=== PATIENT | male | born 1945 | race Caucasian/White ===

== ENCOUNTER 2016-09-30 15:22 | Emergency (ER) | payer MEDICARE, OTHER ==
[~2016-09-30] VITALS: Ht 179.1 cm; Wt 83.6 kg
[2016-09-30 15:24] VITALS: BP 118/82; PULSE 100; RESP 18; O2SAT 94
[2016-09-30 16:03] LABS: BASOPHILS % (AUTO) 0.6 % (0-3); EOSINOPHILS % (AUTO) 1.7 % (0-5); MONOCYTES % (AUTO) 8.6 % (4-12); Mean Corpuscular Hemoglobin 32.3 pg (27.0-35.0); Mean Corpuscular Volume 97.8 fL (81-100); NEUTROPHILS % (AUTO) 77.4 % (40-74); Platelet Count 188 bil/L (150-400)
[2016-09-30 16:27] LABS: TROPONIN T < 0.010 ug/L (0.0-0.011)
--- NOTE | 2016-09-30 16:54 | DRSVH ---
PROCEDURE: X-RAY CHEST, TWO VIEWS ([id number]) INDICATIONS: shortness of breath TECHNIQUE: 2 views of the chest were acquired. COMPARISON: [facility], CR, CHEST 2VW, 08/29/2013, 13:53. FINDINGS: Surgical changes and devices: Sternal wires consistent with previous bypass procedure. Lungs and pleura: No pleural effusions or pneumothorax. Lungs are clear. Mediastinum: Mediastinal contours are normal. Heart size is normal. Bones and chest wall: No suspicious bony abnormalities. Soft tissues appear unremarkable. IMPRESSION: No acute pulmonary process. Dictated by: Berenice Salazar M.D. on 09/30/2016 at 16:52 Approved by: Berenice Salazar M.D. on 09/30/2016 at 16:52
--- NOTE | 2016-09-30 17:05 | ED.REPORT ---
HPI-General Illness Date of Service Sep 30, 2016 ED Provider: Dany García MD Pt is a 71 y/o male w/ a hx of COPD, coronary artery disease s/p CABG, siderosis , and recent shingles who reports to the ED complaining increased shortness of breath and cough for the past few days. Pt was at speech therapy earlier today when he was sent to Urgent Care because she was concerned about his breathing. He was then sent to the ED for further evaluation. He has been using Oxygen that he bought at a local [email or web address], as his Spiriva and Albuterol have not been enough to control his breathing. Patient has not recently been on a course of Prednisone. Pt was diagnosed with shingles on August 30 and following treatment, symptoms improved in 7 days. However, since that time he has had pain extending from his upper right abdomen around to his back, in the dermal pattern associated with shingles. Nursing Notes Stated Complaint: SOB Chief Complaint: Respiratory Distress Nursing Notes Reviewed: Yes Allergies: Coded Allergies: No Known Allergies (Unverified , 09/30/16) Scheduled Azithromycin (Zithromax (Z-Moy)) 250 Mg Tablet 250 MG PO DIRECTED Take two tablets by mouth on day 1, then take one tablet daily on days 2 through 5. Gabapentin (Gabapentin) 100 Mg Capsule 100 MG PO BID Prednisone (PredniSONE) 50 Mg Tablet 50 MG PO DAILY General Time Seen by MD: 16:00 Chief Complaint Breathing problem, Other (post shingles pain) Hx Obtained From: Patient Arrived By: Ambulance Sudden in Onset?: Yes Onset Occurred: Just prior to arrival Symptom Duration: Since onset Severity: Current: Mild Severity: Maximum: Moderate Recent Healthcare: Recent doctor visit Similar Sx Previous: Yes Past Medical History Past Medical History Shingles prior myocardial infarction siderosis Reports: COPD, Coronary artery disease Past Surgical History Bypass surgery due to heart attack Smoking History Unknown if Ever Smoker Social History Other Social History: Good social support, Local resident Ambulatory Status Independent Review of Systems Full Review of Systems Ears / Nose / Throat: Reports: Nasal congestion Respiratory: Reports: Non-productive cough, Shortness of breath Cardiovascular: Reports: Chest pain (associated with recent shingles) Complete sys rev & neg: except as marked. Physical Exam Vital Signs Vital Signs Date Time Temp Pulse Resp B/P Pulse Ox O2 Delivery O2 Flow Rate FiO2 09/30/16 17:59 36.7 98 26 145/70 92 Room Air 09/30/16 17:38 85 22 96 Room Air 09/30/16 15:24 36.5 100 18 118/82 94 Room Air Initial VS: Reviewed Neurologic: Alert, Oriented, Nonfocal Psychiatric: Mood/affect normal, Behavior normal, Normal thought content General/Constitutional: Awake, Alert, No acute distress Head / Eyes: Normocephalic, PERRL, EOMI ENT: Airway patent Neck: Supple, Full range of motion Respiratory / Chest: No respiratory distress, No rales, No rhonchi Diminished Breath Sounds: Positive: Decreased bilateral (decreased air movement throughout) Wheezing / Retractions: Positive: Prolonged exp phase, Wheezing expiratory well healed sternotomy scar Cardiovascular: Heart rate NL, Regular rhythm, Heart sounds NL, Pulses = bilaterally Abdomen: Atraumatic, Soft, Non-tender, No guarding, No rebound Lower Extremity / Pelvis / MS: Atraumatic, No swelling (no calf swelling ), Non -tender (no calf tenderness) Skin: Warm, Dry Color / Condition: Positive: Rash present Rash / Lesion Notes: resolving dermatomal rash at the inferior right costal margin, wrapping around to the back Interpretation & Diagnostics Lab Results Interpretation Result Diagram: 09/30/16 1550 09/30/16 1550 Test 09/30/16 15:50 White Blood Count 7.2th/mm3 (3.8-10.1) Red Blood Count 4.96mil/mm3 (4.40-5.80) Hemoglobin 16.0g/dL (13.8-17.2) Hematocrit 48.5% (41.0-50.0) Mean Corpuscular Volume 97.8fL (81-100) Mean Corpuscular Hemoglobin 32.3pg (27.0-35.0) Mean Corpuscular Hemoglobin Concent 33.0% (32.0-37.0) Red Cell Distribution Width 13.7% (12.3-15.4) Platelet Count 188bil/L (150-400) Neutrophils (%) (Auto) 77.4% (40-74) Lymphocytes (%) (Auto) 11.6% (14-46) Monocytes (%) (Auto) 8.6% (4-12) Eosinophils (%) (Auto) 1.7% (0-5) Basophils (%) (Auto) 0.6% (0-3) Sodium Level 141mEq/L (134-144) Potassium Level 4.4mEq/L (3.5-5.2) Chloride Level 102mEq/L (97-108) Carbon Dioxide Level 24mmol/L (18-29) Blood Urea Nitrogen 20mg/dL (8-27) Creatinine 1.01mg/dL (0.76-1.27) Estimat Glomerular Filtration Rate 77mL/min (>59) Glucose Level 112mg/dL (60-99) Calcium Level 9.1mg/dL (8.5-10.1) Total Bilirubin 0.7mg/dL (0.0-1.2) Aspartate Amino Transf (AST/SGOT) 121U/L (0-50) Alanine Aminotransferase (ALT/SGPT) 182U/L (0-44) Alkaline Phosphatase 69U/L (25-160) Troponin T < 0.010ug/L (0.0-0.011) Pro-B-Type Natriuretic Peptide 103.8pg/mL (0-376) Total Protein 7.8g/dL (6.4-8.4) Albumin 3.9g/dL (3.4-5.0) Hold Ibrahim Top Tube Received (Received) ECG Interpretation ECG Interpretation: sinus tachycardia 101 bpm Time: 17:00 Interpreted by: ED physician X-Ray Chest Interpretation Chest Xray Interpretation: IMPRESSION: No acute pulmonary process. Dictated by: Berenice Salazar M.D. on 09/30/2016 at 16:52 Approved by: Berenice Salazar M.D. on 09/30/2016 at 16:52 View: Portable Interpretation / Wet Read by: Interpret - Radiologist Re-Eval/Medical Decision Med Decision/Clinical Course In summary, the patient is 71-year-old male with a history of COPD who presents to the emergency department complaining of shortness of breath cough and symptoms consistent with previous COPD exacerbations. He also reports that he recently had shingles and that his rash has resolved with antiviral medication but that he is having persistent burning sensation in the region of his previous rash extending from the right back and wrapping around anteriorly to the inferior costal margin. Upon arrival the patient has increased work of breathing with decreased breath sounds throughout examination suggestive of COPD exacerbation. The dermatomal distribution of his pain exactly the same location as his previous shingles is suggestive of postherpetic neuralgia. CXR: Obtained, reviewed and interpreted by myself shows no evidence of acute infiltrates, effusions or pneumothorax. Cardiac and mediastinal silhouette normal. No bony or soft tissue abnormalities. EKG was obtained and interpreted by myself as documented above. Laboratory studies were notable as below: CBC is unremarkable. Kidney function normal. Electrolytes normal, transaminases mildly elevated. BNP WNL. Troponin was negative. Given 2x duonebs in the ED, 125mg IV methylprednisone, thereafter the patient reported significant improvement in his work of breathing and had increased breath sounds throughout both lung [place]. At this time, there is no evidence of pneumonia or pneumothorax. His history and presentation is not suggestive of pulmonary embolism nor do I feel that workup for PE is immediately indicated at this time. While he is at higher risk for acute coronary syndrome given his history thereof the nature of his pain is not suggestive of acute coronary syndrome. Initial screening troponin and EKG are reassuring. The patient was discharged with a five-day course of prednisone and azithromycin for COPD exacerbation. He has been instructed to use his albuterol inhaler every 2-4 hours for the next 24-48 hours. Additionally, he was started on a low dose of gabapentin for postherpetic neuralgia. Follow-up and return precautions were reviewed in detail the patient was discharged in stable condition. He verbalized understanding and agreement with plan. Source of Hx: Old records Time of Eval: 17:55 Patient Status: Condition improved Re-Evaluation/Progress Note: Discussed the patient's labs, chest x-ray, and EKG. Patient understands and agrees with the plan to be discharged home. Discharge instructions and follow-up discussed. Discussed treatment plan. All questions were addressed. Return to the ED warnings given. Counseled Regarding: Diagnosis, Lab results, Need for follow-up, When/why to return to ED Discharge & Departure Primary Impression: COPD exacerbation Additional Impressions: Post herpetic neuralgia Wheezing History of shingles History of coronary artery disease Disposition: Home Discharge Condition All VS Reviewed: Yes Condition: Stable Patient Instructions: Chronic Obstructive Pulmonary Disease (ED) Additional Instructions: Thank you for seeking care at emergency room. It is difficult for us to make definitive diagnoses in the ED but we believe that you are experiencing postherpetic neuralgia as well as a COPD exacerbation. Our primary goal today in the ED was to evaluate you for any life-threatening conditions. Your evaluation was reassuring. You will be discharged with a prescription for azithromycin and prednisone, please take full course as directed, please use your albuterol inhaler every 2- 4 hours for the next 24-48 hours. You may start taking gabapentin for the pain associated with your recent shingles. You should follow-up with your primary doctor in the next week. You should return to the ED immediately if you develop worsening pain, fevers, vomiting, cough, shortness of breath, chest pain, lightheadedness, weakness or any other concerning signs or symptoms. Thank you for letting us partake in your care today. Referrals: Amy Lim (PCP) Slick Attestation Portion of this note were transcribed by Jamsyn Harden and Kori Godoy. I, Dr. García, personally performed the history, physcial exam, and medical decision-making: I reviewed and confirmed the accuracy for the information in the transcribed note. Signed by: slick Krueger, 09/30/16 1815 Signed by: Slick Miller, 09/30/2016 1905 copies to: Amy Lim Beck O MD Sep 30, 2016 17:05 Jasmyn Harden Sep 30, 2016 17:08 KORI GODOY Sep 30, 2016 17:25
[2016-09-30] MEDS ORDERED: PRED50TA PO (17:09)
[2016-09-30] MEDS ORDERED: GABA-500 PO (17:09)
[2016-09-30] MEDS ORDERED: AZIT250T4 PO (17:09)
[2016-09-30] MEDS ORDERED: Albuterol-Ipratropium 3 mL Inhalation Solution NEB ONE (17:10)
[2016-09-30] MEDS ORDERED: Albuterol-Ipratropium 3 mL Inhalation Solution NEB SCH (17:10)
[2016-09-30] MEDS ORDERED: MethylprednisoLONE Sodium Succinate 62.5 mg/mL 2 mL Inj IVPUSH ONE (17:10)
[2016-09-30] MEDS ORDERED: predniSONE 20 mg Tablet PO ONE (17:25)
[2016-09-30 17:38] VITALS: PULSE 85; RESP 22; O2SAT 96
[2016-09-30 17:59] VITALS: BP 145/70; PULSE 98; RESP 26; O2SAT 92
== END 2016-09-30 18:24 | disposition home or self-care (01) ==
LOC: SED 15:22
DX: J44.1 Chronic obstructive pulmonary disease with (acute) exacerbation (principal); B02.29 Other postherpetic nervous system involvement; R06.2 Wheezing; I25.10 Atherosclerotic heart disease of native coronary artery without angina pectoris; Z95.1 Presence of aortocoronary bypass graft; Z86.19 Personal history of other infectious and parasitic diseases
CPT/HCPCS: 36415; 71020; 80053; 83880; 84484; 85025; 93005; 94664; 99285; J7620

== ENCOUNTER 2016-12-11 13:41 | Emergency (ER) | payer OTHER ==
[~2016-12-11] VITALS: Ht 177.8 cm; Wt 83.6 kg
[~2016-12-11 13:41] MED LIST: AZIT250T4 PO; GABA-500 PO; PRED50TA PO
[2016-12-11 13:49] VITALS: BP 126/72; RESP 15; O2SAT 94
--- NOTE | 2016-12-11 14:23 | ED.REPORT ---
HPI-General Illness Date of Service Dec 11, 2016 ED Provider: Gerardo Cartagena DO A 71 year old male with a history of COPD and a rare neurodegenerative disease called siderosis presents to the ED after being told to return to the ER. The patient reports that he has had this disorder for the last 17 years. The patient had swallowing evaluation performed yesterday and aspirated. [facility] path[facility] that the [facility] needed to [facility] a doctor [facility]. [facility] responded, saying that no doctor would be available in a week, and they said to come to the ED to get a PEG tube put in. The patient reports that they passed a swallow evaluation two years ago. The patient denies any focal weakness or numbness, SOB, feelings of sickness, or any loss of vision. He states that he has double vision if he takes his glasses off and reports baseline swelling. He also reports that he sometimes can feel fluid build up in his lungs. His siderosis was originally diagnosed as cerebellar ataxia, but he reports that he recently did tests for a year that ruled out that condition. [facility], and reports that he has had difficulty finding medication to treat the condition because the medication is not FDA approved. He also reports baseline tremors associated with this neurodegenerative disease. He has a history of bypass surgery and currently takes Aspirin. The patient moved to the area from [place] in 2012. His PCP recently moved out of the state and he does not currently have a regular doctor. He has not been hospitalized recently. He does have medicare. He has recently been using a cane that was given to him by the [place] Nursing Notes Stated Complaint: PER CHARGE SEE IN ER Chief Complaint: ENT & Mouth Nursing Notes Reviewed: Yes Allergies: Coded Allergies: No Known Allergies (Unverified , 12/11/16) Scheduled Azithromycin (Zithromax (Z-Moy)) 250 Mg Tablet 250 MG PO DIRECTED Take two tablets by mouth on day 1, then take one tablet daily on days 2 through 5. Gabapentin (Gabapentin) 100 Mg Capsule 100 MG PO BID Prednisone (PredniSONE) 50 Mg Tablet 50 MG PO DAILY General Time Seen by MD: 14:13 Chief Complaint Other (dysphagia) Hx Obtained From: Patient Arrived By: Walk-in Onset Occurred: Onset unknown Symptom Duration: Duration unknown Recent Healthcare: Recent doctor visit Similar Sx Previous: No Past Medical History Past Medical History Shingles prior myocardial infarction siderosis Reports: COPD, Coronary artery disease Past Surgical History Bypass surgery due to heart attack Smoking History Unknown if Ever Smoker Social History Other Social History: Good social support, Local resident Ambulatory Status Independent Review of Systems Dysphagia. Denies feeling sick. Full Review of Systems Eyes: Denies: Visual loss bilateral Respiratory: Denies: Shortness of breath Neurologic: Denies: Focal weakness, Numbness Complete sys rev & neg: except as marked. Physical Exam Vital Signs Vital Signs Date Time Temp Pulse Resp B/P Pulse Ox O2 Delivery O2 Flow Rate FiO2 12/11/16 17:30 36.7 74 18 152/80 95 Room Air 12/11/16 16:51 74 18 152/80 95 Room Air 12/11/16 13:49 36.7 78 15 126/72 94 Room Air Initial VS: Reviewed General/Constitutional: Awake, Alert patient has dysarthria. Head / Eyes: Atraumatic, Normocephalic, PERRL ENT: Atraumatic, Mucous membranes moist Neck: Atraumatic, Full range of motion Respiratory / Chest: Atraumatic, Breath sounds NL, Breath sounds = bilat, No respiratory distress Cardiovascular: Heart rate NL, Heart sounds NL Abdomen: Atraumatic, No guarding, No rebound Back: Atraumatic, Full range of motion Upper Extremities Upper Extremity / MS: Atraumatic, Full range of motion Wrist / Hand: Atraumatic, Full range of motion Lower Extremity / Pelvis / MS: Atraumatic, Full range of motion Ankle / Foot: Atraumatic, Full range of motion Skin: Warm, Dry Neurologic: Oriented X3 Patient has a tremor. Interpretation & Diagnostics Lab Results Interpretation Result Diagram: 12/11/16 1520 12/11/16 1520 Test 12/11/16 15:20 White Blood Count 8.4th/mm3 (3.8-10.1) Red Blood Count 4.59mil/mm3 (4.40-5.80) Hemoglobin 14.9g/dL (13.8-17.2) Hematocrit 45.4% (41.0-50.0) Mean Corpuscular Volume 98.9fL (81-100) Mean Corpuscular Hemoglobin 32.5pg (27.0-35.0) Mean Corpuscular Hemoglobin Concent 32.8% (32.0-37.0) Red Cell Distribution Width 13.8% (12.3-15.4) Platelet Count 229bil/L (150-400) Neutrophils (%) (Auto) 64.5% (40-74) Lymphocytes (%) (Auto) 19.0% (14-46) Monocytes (%) (Auto) 11.1% (4-12) Eosinophils (%) (Auto) 4.6% (0-5) Basophils (%) (Auto) 0.7% (0-3) Sodium Level 139mEq/L (134-144) Potassium Level 4.8mEq/L (3.5-5.2) Chloride Level 104mEq/L (97-108) Carbon Dioxide Level 25mmol/L (18-29) Blood Urea Nitrogen 15mg/dL (8-27) Creatinine 1.32mg/dL (0.76-1.27) Estimat Glomerular Filtration Rate 57mL/min (>59) Glucose Level 85mg/dL (60-99) Calcium Level 9.3mg/dL (8.5-10.1) Total Bilirubin 0.4mg/dL (0.0-1.2) Aspartate Amino Transf (AST/SGOT) 23U/L (0-50) Alanine Aminotransferase (ALT/SGPT) 23U/L (0-44) Alkaline Phosphatase 57U/L (25-160) Total Protein 7.3g/dL (6.4-8.4) Albumin 4.1g/dL (3.4-5.0) Hold Ibrahim Top Tube Received (Received) X-Ray Chest Interpretation Chest Xray Interpretation: IMPRESSION: Probable prominent right basilar nipple shadow present unchanged from prior examination. No acute cardiopulmonary process. Dictated by: Manas Silva RRA Interpreted: Betty Espinoza MD on 12/11/2016 at 15:51 Transcribed by: MANAV on 12/11/2016 at 15:52 Approved by: Betty Espinoza MD, PhD on 12/11/2016 at 16:57 Interpretation / Wet Read by: Interpret - Radiologist Re-Eval/Medical Decision Med Decision/Clinical Course Overall the patient has no complaints and is asymptomatic. The patient was given a modified diet recommendation yesterday by speech pathology. I contacted both the [facility] cadence specialists and [facility] cadence specialists who do not feel this patient needs an emergent PEG tube. This seems reasonable. The patient agrees to follow-up as an outpatient with GI. Return precautions given. Source of Hx: Old records Time of Eval: 16:13 Re-Evaluation/Progress Note: Rechecked patient, explained conern for choking if no feeding tube is in place. Time of Eval: 17:00 Re-Evaluation/Progress Note: Rechecked patient and explained plan for treatment. Consultation #1: Referral / Consult Name: Artie Mcneil MD Call Returned at: 16:18 Pushcart Peddler: Agrees with eval, Agrees with plan Note: Discussed patient case with Dr. Tarun shoemaker reccomends speaking with GI mobile application engineer at [place] for transfer. Otherwise, start thickened liquids with outpatient follow up. Consultation #2: Call Returned at: 16:32 Pushcart Peddler: Agrees with eval Note: Discussed patient case with ALVARADO Mac mobile application engineer at [facility] who thinks that the patient does not need emergent PEG tube insertion and needs diet modifiation and to follow up at out patient clinic. Consultation #3: Call Returned at: 16:39 Note: Discussed patient case with Speech Pathologist who agrees with the plan. Counseled Regarding: Diagnosis, Lab results, Need for follow-up, When/why to return to ED Discharge & Departure Primary Impression: Dysphagia Disposition: Home Discharge Condition All VS Reviewed: Yes Condition: Improved Additional Instructions: Follows a modified diet as prescribed by speech therapy. Follow-up with your primary care doctor and gastroenterology for further managment. Return to the ER as needed for worsening symptoms. Referrals: Amy Lim (PCP) Artie Mcneil MDibjuan manuel Attestation Portions of this note were transcribed by Demetrius Pelaez. I, Dr. Cartagena personally performed the history, physical exam and medical decision-making; I reviewed and confirmed the accuracy of the information in the transcribed note. Signed by: Praveena Whitten, 12/11/2016 3082. copies to: Artie Mcneil MD; Amy Lim Timothy S DO Dec 11, 2016 14:23 Demetrius Pelaez Dec 11, 2016 14:35
[2016-12-11 15:28] LABS: BASOPHILS % (AUTO) 0.7 % (0-3); EOSINOPHILS % (AUTO) 4.6 % (0-5); MONOCYTES % (AUTO) 11.1 % (4-12); Mean Corpuscular Hemoglobin 32.5 pg (27.0-35.0); Mean Corpuscular Volume 98.9 fL (81-100); NEUTROPHILS % (AUTO) 64.5 % (40-74); Platelet Count 229 bil/L (150-400)
--- NOTE | 2016-12-11 15:52 | DRSVH ---
PROCEDURE: X-RAY CHEST, TWO VIEWS ([id number]) INDICATIONS: possible aspiration TECHNIQUE: 2 views of the chest were acquired. COMPARISON: [facility], CR, CHEST 2VW, 08/29/2013, 13:53. [facility], CR, XR CHEST 2VW, 09/30/2016, 16:36. FINDINGS: Surgical changes and devices: Post median sternotomy. Lungs and pleura: No pleural effusions or pneumothorax. Lungs are clear. Prominent nipple shadow r edemonstrated. Mediastinum: Mediastinal contours are normal. Heart size is normal. Bones and chest wall: No suspicious bony abnormalities. Soft tissues appear unremarkable. IMPRESSION: Probable prominent right basilar nipple shadow present unchanged from prior examination. No acute cardiopulmonary process. Dictated by: Manas Silva [facility] Interpreted: Betty Espinoza MD on 12/11/2016 at 15:51 Transcribed by: MANAV on 12/11/2016 at 15:52 Approved by: Betty Espinoza MD, PhD on 12/11/2016 at 16:57
[2016-12-11 16:51] VITALS: BP 152/80; PULSE 74; RESP 18; O2SAT 95
[2016-12-11 17:30] VITALS: BP 152/80; PULSE 74; RESP 18; O2SAT 95
== END 2016-12-11 17:30 | disposition home or self-care (01) ==
LOC: SED 13:41
DX: R13.10 Dysphagia, unspecified (principal); J63.4 Siderosis; I25.10 Atherosclerotic heart disease of native coronary artery without angina pectoris; I25.2 Old myocardial infarction; J44.9 Chronic obstructive pulmonary disease, unspecified; Z95.1 Presence of aortocoronary bypass graft; Z79.52 Long term (current) use of systemic steroids